=== PATIENT | female | born 1970 | race Caucasian/White ===

== ENCOUNTER → 2016-08-29 | Outpatient (CLI) | payer BC ==
--- NOTE | 2016-08-29 16:01 | RADRPT ---
PROCEDURE: Right knee radiographs. CLINICAL INDICATION: Right knee pain. TECHNIQUE: Four views. Weight bearing. Frontal, lateral, oblique, and patellar view. COMPARISON: No prior studies are available for comparison. FINDINGS: There is no fracture or dislocation. The soft tissues are normal. The articular surfaces are intact. There are small osteophytes arising from the medial joint compar tment margins. There is no lytic or blastic lesion. There is no radiopaque foreign body. IMPRESSION: 1. Mild degenerative change. 2. Otherwise normal images of the right knee. RPTAT: QQ .Shade Castillo MD, MD Date Time Electronically viewed and signed by .Shade Castillo MD, MD on 08/29/2016 16:01 .R/
== END | disposition home or self-care (01) ==
LOC: HKI 15:37
PROVIDERS: ATTEND Orthopaedic Surgery
DX: M25.561 Pain in right knee (principal)
CPT/HCPCS: 73564; G0463

== ENCOUNTER → 2016-10-20 | Outpatient (CLI) | payer BC | END | disposition home or self-care (01) | LOC: HKI 15:36 | PROVIDERS: ATTEND Orthopaedic Surgery | DX: S83.231D Complex tear of medial meniscus, current injury, right knee, subsequent encounter (principal); M25.561 Pain in right knee ==